=== PATIENT | female | born 1955 | race Caucasian/White ===

== ENCOUNTER → 2017-09-12 | Outpatient (CLI) | payer BC ==
--- NOTE | 2017-09-14 06:57 | MM ---
Reason for exam: screening (asymptomatic). Last mammogram was performed 1 year and 1 month ago. History: Patient is postmenopausal. Reductions of both breasts, 2001. Taking estrogen for 20 years beginning at age 50. Physical Findings: A clinical breast exam by your physician is recommended on an annual basis and results should be correlated with mammographic findings. MG Screening Mammo w CAD Bilateral CC and MLO view(s) were taken. XCCL view(s) were taken of the right breast. Prior study comparison: August 09, 2016, bilateral MG screening mammo w CAD. March 13, 2015, mammogram. The breast tissue is heterogeneously dense. This may lower the sensitivity of mammography. There is chronic nodularity in the right breast. No significant changes when compared with prior studies. ASSESSMENT: Benign, BI-RAD 2 RECOMMENDATION: Routine screening mammogram of both breasts in 1 year.
== END | disposition home or self-care (01) ==
LOC: RADMAMWWP 13:27
PROVIDERS: ATTEND Obstetrics & Gynecology
DX: Z12.31 Encounter for screening mammogram for malignant neoplasm of breast (principal); Z80.3 Family history of malignant neoplasm of breast
CPT/HCPCS: 77067

== ENCOUNTER → 2018-04-26 | Outpatient (CLI) | payer BC ==
--- NOTE | 2018-04-26 16:37 | MR ---
EXAMINATION TYPE: MR lumbar spine wo con DATE OF EXAM: 04/26/2018 COMPARISON: None HISTORY: Intervertebral disc degeneration, lumbar, arthritis, back pain CONTRAST: None TECHNIQUE: Food Processing Scientist image was obtained. Sagittal T2-weighted images were obtained. Patient became claustrophobic an d refused to complete the examination. Exam is essentially nondiagnostic. Some information is availab le as commented on below. FINDINGS: There is loss of disc height L4-L5. Disc space narrowing is present L2-L3. There is signal change thr oughout the visualized lumbar spine is well as lower thoracic and sacrum. Metastatic disease and marilu ow conversion should be considered. Endplate changes and/or disc bulging at L4-5 has moderate anterior thecal sac compression. Mild theca l sac compression is present L2-L3 with mild to moderate thecal sac compression present L1-2. IMPRESSION: 1. Essentially nondiagnostic examination. Degenerative disc changes with disc bulging causing anterio r thecal sac compression are present. Signal abnormality is within the spinal column osseous structur es. Additional workup is recommended. Consider bone scan.
== END ==
LOC: RADMRIMAIN 06:21
PROVIDERS: ATTEND Internal Medicine Rheumatology
DX: M51.36 Other intervertebral disc degeneration, lumbar region (principal); Z53.8 Procedure and treatment not carried out for other reasons
CPT/HCPCS: 72148

== ENCOUNTER → 2018-11-22 | Outpatient (CLI) | payer BC ==
--- NOTE | 2018-11-23 10:47 | MM ---
Reason for exam: screening (asymptomatic). Last mammogram was performed 1 year and 2 months ago. History: Patient is postmenopausal. Reductions of both breasts, 2001. Taking estrogen for 20 years beginning at age 50. Physical Findings: A clinical breast exam by your physician is recommended on an annual basis and results should be correlated with mammographic findings. MG Screening Mammo w CAD Bilateral CC and MLO view(s) were taken. Prior study comparison: September 12, 2017, bilateral MG screening mammo w CAD. August 09, 2016, bilateral MG screening mammo w CAD. The breast tissue is heterogeneously dense. This may lower the sensitivity of mammography. Benign appearing bilateral calcifications. No suspicious abnormality. No significant changes when compared with prior studies. ASSESSMENT: Benign, BI-RAD 2 RECOMMENDATION: Routine screening mammogram of both breasts in 1 year.
== END ==
LOC: RADMAMWWP 08:26
PROVIDERS: ATTEND Obstetrics & Gynecology
DX: Z12.31 Encounter for screening mammogram for malignant neoplasm of breast (principal); Z80.3 Family history of malignant neoplasm of breast
CPT/HCPCS: 77067

== ENCOUNTER → 2019-07-18 | Outpatient (CLI) | payer BC ==
--- NOTE | 2019-07-18 11:59 | MM ---
Reason for exam: clinical finding. Last mammogram was performed 8 months ago. History: Patient is postmenopausal. Family history of breast cancer in maternal aunt at age 50. Reductions of both breasts, 2001. Taking estrogen for 23 years beginning at age 40. Indicated problem(s): lump or thickening in the right breast. Physical Findings: Nurse Summary: 2cm nodule in the right breast at 8 o'clock (nurse paco). MG 3D Diag Mammo W/Cad CEZAR Bilateral CC and MLO view(s) were taken. Prior study comparison: November 22, 2018, bilateral MG screening mammo w CAD. September 12, 2017, bilateral MG screening mammo w CAD. The breast tissue is heterogeneously dense. This may lower the sensitivity of mammography. Benign appearing calcifications in the right breast. No suspicious abnormality. Mammogram appears similar to priors. These results were verbally communicated with the patient and result sheet given to the patient on 07/18/19. ASSESSMENT: Incomplete: need additional imaging evaluation, BI-RAD 0 RECOMMENDATION: Ultrasound of the right breast.
--- NOTE | 2019-07-18 12:01 | USB ---
History: Patient is postmenopausal. Family history of breast cancer in maternal aunt at age 50. Reductions of both breasts, 2000. Taking estrogen for 23 years beginning at age 40. US Breast Limited RT Right limited breast ultrasound including focal area of concern, retroareolar and axilla demonstrates a 3.3 x 2.4 x 0.5cm mixed, vascular lesion at 7 o'clock possible dilated duct focally with interval debris and a 0.3 x 0.4 x 0.3cm cystic cluster at 8 o'clock. These results were verbally communicated with the patient and result sheet given to the patient on 07/18/19. ASSESSMENT: Suspicious, BI-RAD 4 RECOMMENDATION: Ultrasound core biopsy of the right breast. (7:00) Called Dr. Cheney's office with mammographic findings. Patient request to speak with before making appointment and then will contact Dr. Cheney. PRELIMINARY REPORT CALLED AND FAXED TO DR. CHENEY ON 07/18/19.
== END | disposition home or self-care (01) ==
LOC: RADMAMWWP 09:44
PROVIDERS: ATTEND Obstetrics & Gynecology
DX: R92.8 Other abnormal and inconclusive findings on diagnostic imaging of breast (principal); N60.01 Solitary cyst of right breast
CPT/HCPCS: 77062; 77066